=== PATIENT | male | born 1945 | race Caucasian/White ===

== ENCOUNTER 2022-12-16 11:16 | Emergency (ER) | payer MEDICARE, OTHER ==
[2022-12-16 12:21] LABS: ANION GAP 14.6 mmol/L (5-15)
[2022-12-16] MEDS ORDERED: Iopamidol 755 Mg/ML 100 ML Bottle IVPUSH ONE (12:29)
[2022-12-16] MEDS ORDERED: Iopamidol 612 MG/ML 50 ML SDV IVPUSH ONE (13:39)
[2022-12-16 14:09] VITALS: BP 118/50; PULSE 85
== END 2022-12-16 14:40 | disposition short-term general hospital (02) ==
LOC: VM.ED 11:16
DX: K56.609 Unspecified intestinal obstruction, unspecified as to partial versus complete obstruction (principal); R79.1 Abnormal coagulation profile; K21.9 Gastro-esophageal reflux disease without esophagitis; E11.22 Type 2 diabetes mellitus with diabetic chronic kidney disease; N18.9 Chronic kidney disease, unspecified; E66.9 Obesity, unspecified; Z88.2 Allergy status to sulfonamides; Z88.0 Allergy status to penicillin; Z88.1 Allergy status to other antibiotic agents; Z79.82 Long term (current) use of aspirin; Z79.899 Other long term (current) drug therapy; Z87.891 Personal history of nicotine dependence; Z68.36 Body mass index [BMI] 36.0-36.9, adult
CPT/HCPCS: 36415; 71046; 74019; 80053; 83880; 85025; 85379; 86140; 99285; Q9967